=== PATIENT | male | born 1955 | race Two or more races ===

== ENCOUNTER 2021-06-22 16:48 | Inpatient (IN) | payer OTHER ==
[~2021-06-22] VITALS: Ht 170.2 cm; Wt 89.4 kg
[2021-06-22] MEDS ORDERED: IV NS 0.9% 1,000 ML BAG IV ONE ×2 (17:00→20:30)
--- NOTE | 2021-06-22 17:02 | NUR ---
ALONDRA Martinez PICKED UP FROM [facility] [employer] [facility], GIVEN NARCAN SPRAY BY FRIENDS. THE PATIENT IS RESPONSIVE TO TACTILE STIMULI BY OPENING EYES AND SAYING FEW WORDS. THE PATIENT IS IN ROOM AIR. RESPIRATION REGULAR AND UNLABORED. ATTACHED TO THE MONITOR. THE PATIENT WAS GIVEN TOTAL OF 18 MG OF NARCARN PER FOREIGN CAR MECHANIC`S REPORT. DR PALACIOS IS MADE AWARE. WILL CONTINUE TO MONITOR THE PATIENT.
--- NOTE | 2021-06-22 17:13 | NUR ---
URINE COLLECTED AND SENT TO LAB R KVNG #20G ON NS 1L
--- NOTE | 2021-06-22 17:52 | NUR ---
PT TAKEN TO CT VIA [facility]
[2021-06-22 18:22] LABS: BASOPHILS % (AUTO) 0.1 % (0.0-2.0); EOSINOPHILS % (AUTO) 0.1 % (0.0-6.0); HEMATOCRIT 47 % (39-51); HEMOGLOBIN 15.2 g/dL (13.5-17.5); LYMPHOCYTES # (AUTO) 0.7 K/uL (0.8-4.8); LYMPHOCYTES % (AUTO) 3.4 % (20.0-44.0); MEAN CORPUSCULAR HGB CONC 32 g/dl (31.0-36.0); MEAN CORPUSCULAR VOLUME 97 fL (80-96); MONOCYTES # (AUTO) 1.3 K/uL (0.1-1.30); MONOCYTES % (AUTO) 6.3 % (2.0-12.0); NEUTROPHILS # (AUTO) 18.5 K/uL (1.8-8.9); NEUTROPHILS % (AUTO) 90.1 % (43.0-81.0); PLATELET COUNT (AUTO) 225 K/uL (150-450); RED BLOOD CELL COUNT(AUTO) 4.83 MIL/uL (4.5-6.0); WHITE BLOOD COUNT (AUTO) 20.5 K/uL (4.3-11.0)
[2021-06-22 18:28] LABS: CALCIUM, SERUM 8.1 mg/dL (8.5-10.1); CARBON DIOXIDE 23 mmol/L (21-32); CHLORIDE 106 mmol/L (98-107); CREATININE 1.6 mg/dL (0.6-1.3); GLUCOSE 188 mg/dL (74-106); POTASSIUM 3.9 mmol/L (3.5-5.1); SODIUM SERUM 141 mmol/L (136-145); UREA NITROGEN, BLOOD 20 mg/dL (7-18)
[2021-06-22 18:32] LABS: ALANINE AMINOTRANSFERASE 280 U/L (12-78); ALBUMIN 3.4 g/dL (3.4-5.0); ALCOHOL, BLOOD < 3 mg/dL (0-0); ALKALINE PHOSPHATASE 106 U/L (46-116); ASPARTATE AMINOTRANSFERASE 469 U/L (15-37); BILIRUBIN,DIRECT 0.2 mg/dL (0.0-0.2); BILIRUBIN,TOTAL 0.6 mg/dL (0.2-1.0); TOTAL PROTEIN, SERUM 6.5 g/dL (6.4-8.2)
[2021-06-22 18:42] LABS: ACETAMINOPHEN 0 ug/ml (10-30)
[2021-06-22 18:57] LABS: BILIRUBIN,URINE NEGATIVE (NEGATIVE); COLOR,URINE YELLOW (YELLOW); LEUKOCYTE ESTERASE ,URINE NEGATIVE (NEGATIVE); NITRITE, URINE NEGATIVE (NEGATIVE); PH,URINE 6.5 (5.0-8.0); PROTEIN,URINE 30 mg/dl (NEGATIVE); UGLUCOSE NEGATIVE (NEGATIVE)
[2021-06-22] MEDS ORDERED: ASPIRIN 81 MG TAB.CHEW PO ONE (19:00)
[2021-06-22] MEDS ORDERED: CEFTRIAXONE 1GM BAG (ER ONLY) 50 ML IV ONE ×2 (19:00→20:14)
[2021-06-22 19:08] LABS: BACTERIA,URINE RARE /HPF (None Seen); COARSE GRANULAR CASTS,URINE Few /LPF (None Seen); MUCUS,URINE Few /LPF (None Seen); URINE AMORPHOUS URATE Few /HPF (None Seen)
[2021-06-22 19:38] LABS: SQUAMOUS EPITHELIAL CELL,UR 0-2 /HPF (None Seen)
[2021-06-22] MEDS ORDERED: ASPIRIN 81 MG TAB.CHEW ONE (20:14)
--- NOTE | 2021-06-22 20:26 | NUR ---
ER SPEAKING TO FEDERICO HE DNP REGARDING ADMISSION
--- NOTE | 2021-06-22 21:07 | NUR ---
Ellie lopez in [facility] - 06/22/21 at 2120 by CAMMY [id number]
--- NOTE | 2021-06-22 21:28 | NUR ---
REPORT GIVEN TO MICHAEL Rainey RN FOR CELIA
[2021-06-22 21:50] VITALS: BP 100/61
--- NOTE | 2021-06-22 21:50 | NUR ---
ADMISSION NOTES PT TRANSFERRED VIA [facility] @1950. PT IS AOx1, LETHARGIC. ON 2L/MIN VIA NASAL CANNULA AND TOLERATING WELL. NO SOB NOTED. NO S/SX OF RESPIRATORY DISTRESS NOTED. IV ACCESS IN R HAND #20G. IV IS INTACT, PATENT AND FLUSHING WELL. SAFETY PRECAUTIONS IN PLACE: BED IN LOWEST, LOCKED POSITION, SIDERAILS UPx2, AND BRAKES ON. TABLE AND CALL LIGHT WITHIN REACH. WILL CONTINUE TO MONITOR Addendum: 06/22/21 at 2356 by SUYAPA QUINTANA RN TELE MONITOR DETECTS SINUS TACHYCARDIA WITH RATE OF 102
--- NOTE | 2021-06-22 21:52 | NUR ---
PATIENT TRANSFERRED UNDER ACLS
--- NOTE | 2021-06-22 21:58 | NUR ---
TRANSFERRED PT TO 3W ROOM 307-2 VIA ACLS PROTOCOL ON 2L N/A. PT ARROUSABLE VSS.
[2021-06-22] MEDS ORDERED: Z GUARD REMEDY 2 OZ OINT TP PRN (22:30)
[2021-06-22] MEDS ORDERED: ONDANSETRON HCL/PF 4 MG/2 ML VIAL IVP PRN (22:30)
[2021-06-22] MEDS ORDERED: IV LR 1000 ML 1,000 ML IV PRN (22:30)
[2021-06-22] MEDS ORDERED: ACETAMINOPHEN 325 MG TABLET PO PRN (22:30)
[2021-06-22 22:31] VITALS: BP 100/61
[2021-06-23] VITALS (31 sets, daily range): BP systolic 83–149; BP diastolic 44–88
[2021-06-23] MEDS ORDERED: HEPARIN SODIUM, PORCINE 5000 UNITS/1 ML VIAL IV ONE (02:00)
[2021-06-23] MEDS ORDERED: HEPARIN INFUSION/D5W 500 ML IV ONE (02:07)
[2021-06-23] MEDS: HEPARIN INFUSION/D5W 500 ML IV PRN (02:35)
--- NOTE | 2021-06-23 02:48 | NUR ---
DR. HE CAME TO SEE THE PATIENT WHO HAD OXYGEN SATURATION OF 82%. PLACED PATIENT ON NONREBREATHER. GAVE HEPARIN BOLUS AND BEGAN HEPARIN IV DRIP. PATIENT IS GOING TO BE TRANSFERRED TO ER FOR FURTHER OBSERVATION. Addendum: 06/23/21 at 0305 by SUYAPA QUINTANA RN PT TRANSFERRED TO ICU - ROOM 258. REPORT GIVEN TO MONO CALVO.
[2021-06-23] MEDS ORDERED: PROPOFOL 100 ML ONE ×2 (02:49→03:12)
[2021-06-23] MEDS ORDERED: PROPOFOL 10MG/ML 50ML 50 ML IV PRN (03:00)
[2021-06-23] MEDS ORDERED: ROCURONIUM BROMIDE 50 MG/5 ML IV ONE ×2 (03:00→11:36)
[2021-06-23] MEDS ORDERED: ETOMIDATE 2 MG/ML VIAL IV ONE ×2 (03:00→11:36)
[2021-06-23] MEDS ORDERED: FUROSEMIDE 20 MG/2 ML VIAL IV STA (03:22)
--- NOTE | 2021-06-23 03:25 | NUR ---
RT pt intubated post abg results. abg: ph 7.16 co2 54 o2 336 hco3 19. intubated orally, ett size 8.0, 24 at upper lip. vent settings: AC 18 500 60% +5. ett secure and patent. vent plugged in to red outlet. ambu bag at bedside. alarms on and audible. lung sounds course. small, thick, yellow secretions suctioned via ett. no sob, no resp distress at this time.
[2021-06-23 04:35] LABS: BASOPHILS % (AUTO) 0.2 % (0.0-2.0); HEMATOCRIT 47 % (39-51); HEMOGLOBIN 15.4 g/dL (13.5-17.5); LYMPHOCYTES # (AUTO) 0.5 K/uL (0.8-4.8); LYMPHOCYTES % (AUTO) 4.2 % (20.0-44.0); MEAN CORPUSCULAR HGB CONC 33 g/dl (31.0-36.0); MEAN CORPUSCULAR VOLUME 96 fL (80-96); MONOCYTES # (AUTO) 0.6 K/uL (0.1-1.30); NEUTROPHILS # (AUTO) 10.2 K/uL (1.8-8.9); NEUTROPHILS % (AUTO) 90.6 % (43.0-81.0); PLATELET COUNT (AUTO) 238 K/uL (150-450); RED BLOOD CELL COUNT(AUTO) 4.85 MIL/uL (4.5-6.0); WHITE BLOOD COUNT (AUTO) 11.2 K/uL (4.3-11.0)
[2021-06-23 04:47] LABS: ALBUMIN 3.2 g/dL (3.4-5.0); BILIRUBIN,TOTAL 0.9 mg/dL (0.2-1.0); CALCIUM, SERUM 7.6 mg/dL (8.5-10.1); CREATININE 1.5 mg/dL (0.6-1.3); MAGNESIUM 2.1 mg/dL (1.8-2.4); PHOSPHORUS 4.9 mg/dL (2.5-4.9); POTASSIUM 5.2 mmol/L (3.5-5.1); TOTAL PROTEIN, SERUM 6.3 g/dL (6.4-8.2)
[2021-06-23 04:58] LABS: THYROID STIMULATING HORMONE 0.818 uIU/mL (0.358-3.74)
[2021-06-23 05:00] LABS: CSF GLUCOSE 69 mg/dL (40-70); CSF PROTEIN 32.2 mg/dL (15-45)
--- NOTE | 2021-06-23 05:30 | NUR ---
CRITICAL LAB VALUE, TROP. 1.234
--- NOTE | 2021-06-23 05:38 | NUR ---
RT increased rate from 18 to 22 and fio2 from 60% to 70% per eva negro dnp, post intubation abg result
--- NOTE | 2021-06-23 06:40 | NUR ---
RN CLOSING NOTE PATIENT IN BED RESTING, NO ACUTE DISTRESS NOTED. PATIENT HAS IVF RUNNING ORDERED. PT HAD 1450CC URINE OUTPUT. NO S/S OF PAIN NOTED. PATIENT IS TOLERATING VENT SETTING WELL. SAFETY MEASURES IN PLACE. HOB ELEVATED TOLERATED, SIDE RAILS UP X3, BED LOCKED IN LOWEST POSITION WITH BED ALARM ON. WILL ENDORSE TO DAY SHIFT RN FOR CONTINUATION OF CARE.
--- NOTE | 2021-06-23 07:25 | NUR ---
ICU/RN PT IS INTUBATED ON THE VENT AC MODE,FIO2-70%,SAT O2-100%.SEDATED ON DIPRIVAN.BILATERAL WRIST RESTRAINS ON.NPO.F/C IN PLACE DRAINING WITH YELLOW URINE.HR-106 SINUS .ON HEPARIN DRIP.SUCTION PROVIDED.REPOSITION FOR COMFORT.
[2021-06-23 07:26] LABS: ABG BASE EXCESS -10.1 mmol/L; ABG OXYGEN SATURATION 99.4 % (92.0-98.5); ABG PCO2 54.1 mmHg (35.0-45.0); ABG PH 7.163 (7.350-7.450); AaDO2 322.9 mmHg; MetHb 0.3 % (0.0-1.5); O2Hb 98.1 % (94.0-97.0); SITE, ABG Left Brachial; VENT MODE, BG 15 L NRB
[2021-06-23 07:26] LABS: ABG BASE EXCESS -6.8 mmol/L; ABG OXYGEN SATURATION 95.6 % (92.0-98.5); ABG PCO2 45.9 mmHg (35.0-45.0); ABG PH 7.262 (7.350-7.450); ABG PO2 76.3 mmHg (75.0-100.0); COHb 0.9 % (0.5-1.5); MetHb 0.2 % (0.0-1.5); O2Hb 94.5 % (94.0-97.0); SITE, ABG Right Radial; VENT MODE, BG AC 18 500 60% +5
--- NOTE | 2021-06-23 08:10 | NUR ---
ICU/RN PTT-86.5.HEPARIN DRIP PLACED ON HOLD ORDERED.
--- NOTE | 2021-06-23 08:21 | NUR ---
fio2 titrate down to 40% due to 150 PaO2. rn notified on vent changes spo2 99% post vent changed Addendum: 06/23/21 at 0823 by FRANKIE SHANNON RT Amended: Links added.
[2021-06-23] MEDS: ASPIRIN EC 81 MG TABLET.DR PO SCH (08:45)
[2021-06-23] MEDS ORDERED: ENOXAPARIN SODIUM 40 MG/0.4 ML DISP.SYRIN SQ SCH (09:00)
--- NOTE | 2021-06-23 09:20 | NUR ---
ICU/RN HEPARIN RESTARTED. RIGHT PICC LINE PLACED ORDERED. DR WILLIS SEEN THE PT .PT PLACED ON SIMV MODE.DIPRIVAN OFF.CONTINUE MONITORING.
--- NOTE | 2021-06-23 10:02 | NUR ---
vent changes below as order for weaning trial: simv 4 ps 15 fio2 40% peep +4 pt. is awake and alert and able to lift his head. Addendum: 06/23/21 at 1005 by FRANKIE SHANNON RT Amended: Links added.
[2021-06-23] MEDS: IV D5/ 0.9% NACL 1,000 ML IV PRN ×2 (10:52→22:06)
[2021-06-23] MEDS ORDERED: DC PROPOFOL WHEN EXTUBATED XX PRN (11:00)
--- NOTE | 2021-06-23 14:55 | NUR ---
pt. is awake and alert @ 1455 pt is extubated as order. RR 12 BPM spo2 98% HR 108 bpm no increase work of breathing noted. Addendum: 06/23/21 at 1502 by FRANKIE SHANNON RT Amended: Links added.
--- NOTE | 2021-06-23 15:00 | NUR ---
ICU/RN PT IS EXTUBATED.ON 2L N/C ,SAT O2-93-95%.V/S STABLE,AFEBRILE.AWAKE ,ALERT.SLEEPY.NO PAIN REPORTED AT THIS TIME.
--- NOTE | 2021-06-23 18:00 | NUR ---
ICU/RN PM CARE PROVIDED.PT IS SLEEPY.APTT-46. NO CHANGES.ON HEPARIN DRIP AT 1000 UNITS. NO S/S OF BLEEDING NOTED.AND IV FLUIDS. ORDERED.F/C-650 ML FOR 12 HRS. CONTINUE MONITORING.
--- NOTE | 2021-06-23 19:00 | NUR ---
DIAMOND EXPERT NOTE RECEIVED PATIENT IN BED SLEEPING NO VERBAL RESPONSIVE ON 2L OXYGEN VIA NASAL CANNULA O2:90-91 IV SITE IS ON LEFT HAND RIGHT HAND AND RIGHT UPPER ARM PICC LINE INTACT PATENT ON HEPARIN DRIP 1000 UNIT/HR AND D5NS 100CC/HR,WHATLEY CATHETER IN PLACE URINE DRAINING YELLOW AND CLEAR BY GRAVITY,SAFETY MEASURE IMPLEMENT,BED IN LOW POSITION AND LOCKED BED ALARM IS ON,HEAD OF THE BED ELEVATED CONTINUE TO MONITOR.
[2021-06-24] VITALS (16 sets, daily range): BP systolic 117–142; BP diastolic 74–91
[2021-06-24] MEDS: HEPARIN INFUSION/D5W 500 ML IV PRN (01:23)
[2021-06-24 04:55] LABS: BASOPHILS % (AUTO) 0.1 % (0.0-2.0); HEMATOCRIT 42 % (39-51); HEMOGLOBIN 14.1 g/dL (13.5-17.5); LYMPHOCYTES # (AUTO) 0.4 K/uL (0.8-4.8); MEAN CORPUSCULAR HGB CONC 34 g/dl (31.0-36.0); MEAN CORPUSCULAR VOLUME 95 fL (80-96); MONOCYTES # (AUTO) 0.8 K/uL (0.1-1.30); MONOCYTES % (AUTO) 7.4 % (2.0-12.0); NEUTROPHILS # (AUTO) 9.3 K/uL (1.8-8.9); NEUTROPHILS % (AUTO) 88.5 % (43.0-81.0); PLATELET COUNT (AUTO) 185 K/uL (150-450); WHITE BLOOD COUNT (AUTO) 10.5 K/uL (4.3-11.0)
[2021-06-24 05:03] LABS: ALBUMIN 2.8 g/dL (3.4-5.0); BILIRUBIN,TOTAL 1.1 mg/dL (0.2-1.0); CALCIUM, SERUM 7.7 mg/dL (8.5-10.1); PHOSPHORUS 2.3 mg/dL (2.5-4.9)
--- NOTE | 2021-06-24 06:24 | NUR ---
SUPERVISORY INVESTIGATIVE SPECIALIST NOTE RECEIVED PTT RESULT 72.7 PER PROTOCOL HEPARIN DECREASE 100 UNIT AND NEXT PTT IS 1230,PATIENT ON HEPARIN DRIP 900 UNIT PER HOUR CONTINUE TO MONITOR
--- NOTE | 2021-06-24 06:52 | NUR ---
WASHER BLANKET NOTE PATIENT IS SLEEPING AND VERBALLY RESPONSIVE ALERT ORIENTED X2-3 ON 2L OXYGEN VIA NASAL CANNULA O2:92% IV SITE IS ON LEFT AND RIGHT HAND AND RIGHT UPPER ARM PICC LINE INTACT PATENT,PATIENT IS ON HEPARIN DRIP 900 UNIT/HR AND ON IV HYDRATION D5NS 100CC/HR.WHATLEY CATHETER IN PLACE KEPT CLEAN AND DRY ALL THE TIME,KEPT CALL LIGHT WITHIN REACH HEAD OF THE BED ELEVATED ALL NEEDS MET ENDORSE NEXT COMING SHIFT FOR CONTINUATION OF CARE.
[2021-06-24] MEDS: IV D5/ 0.9% NACL 1,000 ML IV PRN ×2 (07:51→20:32)
[2021-06-24] MEDS ORDERED: K PHOS NEUTRAL 250 MG TABLET PO ONE (08:00)
--- NOTE | 2021-06-24 08:00 | NUR ---
RN NOTES RECEIVED PATIENT IN THE BED RESTING. PATIENT ON O22LNC. NO ACUTE RESPIRATORY DISTRESS, .VSS. PATIENT A/O X2/3 WITH DELIRIUM, TOLERATED BREAKFAST WELL. REFUSED PAIN. REPOSTION SELF IN THE BED. CALL LIGHT WITHIN TO REACG. SAFETY PRECAUTION MAINTAINED ALL TTHE TIME.
[2021-06-24] MEDS: ASPIRIN EC 81 MG TABLET.DR PO SCH (08:55)
[2021-06-24] MEDS: ENOXAPARIN SODIUM 40 MG/0.4 ML DISP.SYRIN SQ SCH (08:57)
--- NOTE | 2021-06-24 09:30 | NUR ---
rn notes get order to stop heparin infusion. due medication administered.
--- NOTE | 2021-06-24 10:17 | NUR ---
rn notes get order to transfer patient to the tele with meds.
--- NOTE | 2021-06-24 11:00 | NUR ---
RN NOTES PATIENT SIGN CONSENT FORM FOR CT OF ANGIO HEART W/3D IMAGES.
[2021-06-24 11:51] LABS: ABG BASE EXCESS -4.9 mmol/L; ABG PCO2 40.7 mmHg (35.0-45.0); ABG PH 7.325 (7.350-7.450); ABG PO2 106.3 mmHg (75.0-100.0); AaDO2 132.1 mmHg; COHb 0.8 % (0.5-1.5); MetHb 0.3 % (0.0-1.5); O2Hb 96.9 % (94.0-97.0); PEEP,BG 5 cm H2O; SITE, ABG Right Brachial; VT, ABG 500 mL
--- NOTE | 2021-06-24 12:45 | NUR ---
rn notes transferred patient to the tele unit room 313 bed 2, patient stable, no acute respiratory distress, o2-2lnc , vss. bedside report given CTY RN follow up plan of care.
--- NOTE | 2021-06-24 13:15 | NUR ---
RECEIVED PT. VIA BED.MADE COMFORTABLE. VS TAKEN.IV INFUSING F/CATH TO GRAVITY DRAINAGE. HOOKED UP TO TELE. PT'S RHYTHM SINUS RATE OF 93.SIDE RAILS UP CALL PEARSON WITHIN REACH.
--- NOTE | 2021-06-24 18:00 | NUR ---
NO CHANGE IN STATUS.
--- NOTE | 2021-06-24 19:30 | NUR ---
WIND PLANT MANAGER OPENING NOTE RECEIVED PATIENT IN BED. SLEEPING. ON OXYGEN 3L/MIN VIA NASAL CANNULA. RESPIRATIONS ARE EVEN AND UNLABORED. NO S/S SOB NOTED. NO S/S PAIN NOTED. IN NO APPARENT DISTRESS. TELE MONITOR RED SINUS RHYTHM HR 90. IV ACCESS IN LEFT HAND, RIGHT HAND AND KERVIN PICC LINE RUNNING D5NS@100ML/HR. WHATLEY CATHETER IS PRESENT, DRAINING TO GRAVITY, URINE IS HEMATURIA. BED IS LOW AND LOCKED, HOB IN HIGH FOWLERS, SIDE RIALS UP X2, CALL LIGHT WITHIN REACH.
[2021-06-25] VITALS: BP 134/71
[2021-06-25 04:00] VITALS: BP 129/77
--- NOTE | 2021-06-25 05:27 | NUR ---
RN NOTE PATIENT TEMP 100.5 ORALLY. NO PRN TYLENOL. LFTS ELEVATED. TURNED ON ROOM AC. REMOVED ALL LINEN. PLACED ICE PACKS ON PATIENT.
[2021-06-25] MEDS: IV D5/ 0.9% NACL 1,000 ML IV PRN ×2 (05:42→18:02)
--- NOTE | 2021-06-25 06:48 | NUR ---
RN NOTE PATIENT RESTING IN BED. A/OX2-3. PATIENT NEURO CHECK Q4HR. REMAINS ON OXYGEN 3L/MIN VIA NASAL CANNULA.NO RESP DISTRESS. NO C/O PAIN. PAINS TEMP IS NOW 98.5. TELE READS SINUS RHYTHM. IV IN KERVIN PICC LINE RUNNING D5NS@100ML/HR. WHATLEY CATHETER OUTPUT 600CC HEMATURIA. BED REMAINS LOW AND LOCKED, HOB IN HIGH FOWLERS, SIDE RIALS UP X2, CALL LIGHT WITHIN REACH. WILL ENDORSE TO ONCOMING SHIFT.
[2021-06-25 06:52] LABS: BASOPHILS % (AUTO) 0.3 % (0.0-2.0); EOSINOPHILS % (AUTO) 0.4 % (0.0-6.0); HEMATOCRIT 38 % (39-51); HEMOGLOBIN 13.1 g/dL (13.5-17.5); LYMPHOCYTES # (AUTO) 0.7 K/uL (0.8-4.8); LYMPHOCYTES % (AUTO) 7.4 % (20.0-44.0); MEAN CORPUSCULAR HGB CONC 34 g/dl (31.0-36.0); MEAN CORPUSCULAR VOLUME 94 fL (80-96); MONOCYTES # (AUTO) 0.7 K/uL (0.1-1.30); MONOCYTES % (AUTO) 7.4 % (2.0-12.0); NEUTROPHILS # (AUTO) 7.5 K/uL (1.8-8.9); NEUTROPHILS % (AUTO) 84.5 % (43.0-81.0); PLATELET COUNT (AUTO) 180 K/uL (150-450); RED BLOOD CELL COUNT(AUTO) 4.07 MIL/uL (4.5-6.0); WHITE BLOOD COUNT (AUTO) 8.9 K/uL (4.3-11.0)
[2021-06-25 07:13] LABS: ALBUMIN 2.3 g/dL (3.4-5.0); BILIRUBIN,TOTAL 1.3 mg/dL (0.2-1.0); CALCIUM, SERUM 8.2 mg/dL (8.5-10.1); CREATININE 0.8 mg/dL (0.6-1.3); MAGNESIUM 2.2 mg/dL (1.8-2.4); TOTAL PROTEIN, SERUM 5.6 g/dL (6.4-8.2)
--- NOTE | 2021-06-25 07:26 | NUR ---
PLANETARIUM TECHNICIAN OPENING NOTES RECEIVED PATIENT AWAKE IN BED IN NO ACUTE SIGNS OF DISTRESS. A/O X2-3. ABLE TO MAKE NEEDS KNOWN, DENIES PAIN OR DISCOMFORTS AT THIS TIME. ON O2 3L/MIN VIA N/C, TOLERATING WELL, RESPIRATIONS ARE EVEN AND UNLABORED. ON TELE MONITOR WITH READING OF NSR WITH PVC'S, HR ON THE 90'S AT THIS TIME, NO C/O CARDIAC DISTRESS VOICED. IV SL ON LEFT HAND G#20, RIGHT HAND G#20 AND KERVIN PICC LINE ALL INTACT AND PATENT, IVF OF D5 NS@100ML/HR INFUSING WELL TO KERVIN PICC LINE. WHATLEY CATHETER IN PLACE WITH CLEAR PINKISH YELLOWISH URINE DRAINING TO GRAVITY. SAFETY MEASURES IN PLACE: BED IN LOWEST LOCKED POSITION, BED ALARM ON, SIDE RAILS UP X2 ANS CALL LIGHT WITHIN REACH. WILL CONTINUE TO MONITOR PT ACCORDINGLY.
[2021-06-25 08:00] VITALS: BP 145/84
[2021-06-25] MEDS: ASPIRIN EC 81 MG TABLET.DR PO SCH (08:24)
[2021-06-25] MEDS: ENOXAPARIN SODIUM 40 MG/0.4 ML DISP.SYRIN SQ SCH (08:25)
[2021-06-25 09:08] LABS: POTASSIUM 3.7 mmol/L (3.5-5.1)
[2021-06-25] MEDS ORDERED: IOHEXOL-350 100 ML VIAL IV ONE (09:55)
[2021-06-25] MEDS ORDERED: METOPROLOL TARTRATE INJ 5 MG/5 ML AMPUL ONE (10:09)
[2021-06-25] MEDS: METOPROLOL TARTRATE INJ 5 MG/5 ML AMPUL IVP PRN ×4 (10:12→10:27)
--- NOTE | 2021-06-25 10:17 | NUR ---
RN NOTES PT PICKED-UP FOR [facility] .
[2021-06-25] MEDS ORDERED: IV NS 0.9% 500 ML IV ONE (10:30)
[2021-06-25] MEDS ORDERED: NITROGLYCERIN 0.4 MG/TAB BOTTLE SL ONE (10:30)
[2021-06-25 11:07] LABS: *CRYPTOCOCCUS AG, CSF Negative (Negative)
--- NOTE | 2021-06-25 12:38 | NUR ---
"SS consult : SS consult requested for homelessness and substance abuse. Pt. is a 47-year-old male [place] per EMR. Per the EMR, pt. was given Narcan by his friends which did not arouse him much. Pt. presents to the ER with acute renal failure and lactic acidosis per EMR. Per the EMR, pt. tested positive for cannabinoids and methamphetamine. Upon SS consult, pt. was A&O x3 and appears unkempt. Pt. presented with a depressed mood and affect and slow speech. Pt. did not provide appropriate eye contact and his eyes were closed throughout the interview. Pt. stated that he is currently in the hospital because he had a heart attack. SW explored substance abuse HX. Per the pt., he hasnt used alcohol or drugs in a year. SW offered MAT resources and pt. refused them. SW explored the social support of the pt. Per the pt., the primary tooth cutter contact wheel is his ex- Ester ([phone], [address] [facility]). SW explored pt.s living situation. Pt. stated they are currently experiencing homelessness and stays with friends. Pt. stated that they have been homeless for six months. SW offered homeless resources and pt. accepted them. SW explored psychiatric HX. Per the pt., he does not have a psychiatric diagnosis. Pt. denied visual/auditory hallucinations and denied SI/HI. SW explored financial benefits. Pt. stated they receive general relief. Pt. states he is ambulatory. Plan: Upon discharge, pt. stated they will return to stay with friends but did not provide name/address. SW will remain available as needed. Pt. signed homeless waiver and it was placed in the pt.s chart. Year-round shelters: [facility] [place] [address] [place] [address] ; [facility] [place] [address] [place] [address]; [facility] [place] [facility] [address] [facility] [address] Winter Shelters: [place] Provider: [facility] [place] Address: [facility] Janice [place], [address] # of Beds: 47 Population Served: [facility] | [place] Provider: [facility] Address: [address] [place] [address], [address] # of Beds: 66 Population Served: [facility] Reinaldo [place] Provider: [facility] Address: [address] [facility] [facility], [address] # of Beds: 56 Population Served: [facility] Zane Temple Provider: [facility] Address: [address] [facility], [address] # of Beds: 49 Population Served: [facility] 8 | [place] Provider: [facility] Address: [address] [facility], [address] # of Beds: 37 Population Served: [facility] Hygiene: [place] [facility]: [address] [facility] [place] [facility] ; [place] [facility] [address] [facility] ; [facility] [address] [facility] . Food Resources: [place] [facility] at [facility]- [address] [facility]; Meet Each Need with Dignity ([facility]) [address] [facility]; [facility] [address] [facility]; [facility] [address] [facility]. Mental Health resources provided: [facility] [address] [place] [address] ; [facility] [address] [facility] [address], [place] [address] ; Fawn [facility] [address] [place] [address] ; [place] [facility] [address] [place], [place] [phone] Healthcare Clinics: [facility] [address] [facility], [address] [place]. [place] ; [facility] [address] [facility] [address] [place] [address]; [facility] [address] [facility] [place] [address] [phone] Counseling--Outpatient [facility] [address] [facility], [place] [address] (Specializes in in-depth psychotherapy for emotional distress: anxiety, depression, interpersonal conflicts, life transitions, childhood abuse) [facility] [address] [place] [address] (Assist with solving problem marital difficulties, separation & divorce, aging parents, & grief, chronic & terminal illness) [facility] [address] [place] [address] (Deal with loss & grief, anxiety, marital difficulties) Homebound/Mental Health Services [address] [address] [facility] [address] [place] [address] (Provide in-home mental services to people who are incapable of leaving their homes) [facility]eds of the Elderly Senior Service/Resource Center [address] [place] [address] [facility] [address] [facility] [place] [address] PSYCHIATRIC OUTPATIENT SERVICES [facility] Partial Hospitalization and Intensive Outpatient Program (Managed Care and [place] Only)[address] [facility]. [facility] [phone] [facility] Partial Hospitalization and Outpatient [id number] [facility]. [address] [place], [place] [phone] [facility] [place] Ogz[address] [facility] [address] [place], [place] [phone] [facility] Partial Hospitalization and Outpatient [id number] [place], [phone] Substance Abuse resources provided included: [facility] Substance Abuse Self-Helpline (SAS) ; [facility] [address] [facility]. [place]. [place] [address] ; [facility] [place] [address] [facility] [address] ; [facility] Rehabilitation [facility] [address] [place] [address] ; [facility] [address] [facility] [address] ; [facility] [address] [facility] [phone] ; [facility] [address] [facility] [phone] ; [facility] Substance Abuse Helpline([facility] ; [facility] ; [facility]; [facility]a [facility]; [facility] [place]; [facility] Travis [place]; [place] [facility]; [facility]; [facility]; [facility] [place]; Alcoholics Anonymous -SFV; Sy-Uitk-Zbqmqko ; Marijuana Anonymous -SFV; Narcotics Anonymous www.na.org;"
--- NOTE | 2021-06-25 14:42 | NUR ---
RN NOTES PT TITRATED DOWN O2 VIA N/C AT 3LPM TO 2LPM, TOLERATING WELL WITH SP02 OF 94-95% NOTED. WILL CONTINUE TO MONITOR PT.
[2021-06-25] MEDS ORDERED: K PHOS NEUTRAL 250 MG TABLET PO ONE ×2 (15:30→18:00)
[2021-06-25 16:00] VITALS: BP 133/79
[2021-06-25] MEDS: PIPERACILLIN /TAZOBACTAM 3.375 G in IV D5W 50 ML IV SCH (17:53)
--- NOTE | 2021-06-25 18:36 | NUR ---
MS RN CLOSING NOTES PATIENT ASLEEP IN BED AT THIS TIME, EASILY AWAKENS. A/O X3. ABLE TO MAKE NEEDS KNOWN. ON O2 2L/MIN VIA N/C, TOLERATING WELL, RESPIRATIONS ARE EVEN AND UNLABORED. IV SL ON LEFT HAND G#20, RIGHT HAND G#20 AND KERVIN PICC LINE ALL INTACT AND PATENT, IVF OF D5 NS@100ML/HR INFUSING WELL TO KERVIN PICC LINE. WHATLEY CATHETER IN PLACE WITH TEA COLORED URINE OUTPUT NOTED NOW, WHATLEY CARE DONE. ALL NEEDS AND CARE PROVIDED WELL. SAFETY MEASURES KEPT IN PLACE: BED IN LOWEST LOCKED POSITION, BED ALARM ON, SIDE RAILS UP X2 ANS CALL LIGHT WITHIN REACH. STILL NEED TO COLLECT SPUTUM FOR CULTURE. WILL ENDORSE CELIA AND PLAN OF CARE TO CONSTRUCTION RIGGER NURSE.
--- NOTE | 2021-06-25 19:30 | NUR ---
MS/RN OPENING NOTE RECEIVED PATIENT SLEEPING IN BED. ALERT AND ORIENTED X 3. ABLE TO MAKE NEEDS KNOWN. DENIES PAIN AT THIS TIME. CONTINUES ON 2L O2 VIA NC WITH NO S/SX OF RESPIRATORY DISTRESS NOTED. IV ACCESS TO RIGHT UPPER ARM PICC LINE INTACT AND PATENT. CONTINUES ON IVF D5NS @ 100ML/HR. IV ACCESS TO LEFT HAND #20G AND RIGHT HAND #20G BOTH INTACT, PATENT AND SALINE LOCKED. CONTINUES ON IV ABX. WHATLEY CATHETER IN PLACE DRAINING EV COLORED URINE TO GRAVITY. CALL LIGHT WITHIN REACH. ASPIRATION, FALL AND SAFETY PRECAUTIONS MAINTAINED. WILL CONTINUE TO MONITOR.
[2021-06-25 20:00] VITALS: BP 114/60
--- NOTE | 2021-06-25 20:15 | NUR ---
MS/RN NOTE PATIENT WITH FEVER OF 100.6. COOLING MEASURES INITIATED. NOTIFIED TUFTING MACHINE FIXER MD TREJO TO OBTAIN TYLENOL PRN ORDER. AWAITING CALL BACK.
--- NOTE | 2021-06-25 20:30 | NUR ---
MS/RN NOTE ADMINISTERED PRN TYLENOL FOR FEVER WITH PENDING EFFECT. WILL RECHECK TEMP.
[2021-06-25] MEDS: ACETAMINOPHEN 325 MG TABLET PO PRN (20:36)
--- NOTE | 2021-06-25 21:30 | NUR ---
MS/RN NOTE TEMP DOWN TO 99.1. PATIENT CURRENTLY SLEEPING IN BED. WILL CONTINUE TO MONITOR.
[2021-06-26] MEDS: PIPERACILLIN /TAZOBACTAM 3.375 G in IV D5W 50 ML IV SCH ×5 (00:32→23:50)
[2021-06-26] MEDS: IV D5/ 0.9% NACL 1,000 ML IV PRN (04:45)
[2021-06-26] MEDS: ACETAMINOPHEN 325 MG TABLET PO PRN (06:10)
[2021-06-26 06:18] LABS: BASOPHILS % (AUTO) 0.2 % (0.0-2.0); EOSINOPHILS % (AUTO) 0.6 % (0.0-6.0); HEMATOCRIT 37 % (39-51); HEMOGLOBIN 12.8 g/dL (13.5-17.5); LYMPHOCYTES # (AUTO) 0.7 K/uL (0.8-4.8); LYMPHOCYTES % (AUTO) 7.6 % (20.0-44.0); MEAN CORPUSCULAR HGB CONC 34 g/dl (31.0-36.0); MEAN CORPUSCULAR VOLUME 93 fL (80-96); MONOCYTES # (AUTO) 0.8 K/uL (0.1-1.30); MONOCYTES % (AUTO) 8.3 % (2.0-12.0); NEUTROPHILS # (AUTO) 7.9 K/uL (1.8-8.9); NEUTROPHILS % (AUTO) 83.3 % (43.0-81.0); PLATELET COUNT (AUTO) 196 K/uL (150-450); RED BLOOD CELL COUNT(AUTO) 3.99 MIL/uL (4.5-6.0); WHITE BLOOD COUNT (AUTO) 9.4 K/uL (4.3-11.0)
--- NOTE | 2021-06-26 06:30 | NUR ---
MS/RN CLOSING NOTE PATIENT CURRENTLY SLEEPING IN BED. ALERT AND ORIENTED X 3. ABLE TO MAKE NEEDS KNOWN. DENIES PAIN AT THIS TIME. CONTINUES ON 1L O2 VIA NC WITH NO S/SX OF RESPIRATORY DISTRESS NOTED. IV ACCESS TO RIGHT UPPER ARM PICC LINE INTACT AND PATENT. CONTINUES ON IVF D5NS @ 100ML/HR. IV ACCESS TO LEFT HAND #20G INTACT, PATENT AND SALINE LOCKED. CONTINUES ON IV ABX. WHATLEY CATHETER IN PLACE DRAINING EV COLORED URINE TO GRAVITY. TOTAL OUTPUT WS 650ML THIS SHIFT. CALL LIGHT WITHIN REACH. ASPIRATION, FALL AND SAFETY PRECAUTIONS MAINTAINED. WILL ENDORSE PLAN OF CARE TO ONCOMING SHIFT.
[2021-06-26 06:57] LABS: CALCIUM, SERUM 7.7 mg/dL (8.5-10.1); CREATININE 0.9 mg/dL (0.6-1.3); MAGNESIUM 1.8 mg/dL (1.8-2.4); PHOSPHORUS 1.2 mg/dL (2.5-4.9); POTASSIUM 3.6 mmol/L (3.5-5.1)
--- NOTE | 2021-06-26 07:20 | NUR ---
MS RN OPENING NOTES RECEIVED PATIENT ASLEEP IN BED, EASILY AROUSABLE. PT IS A/O X3. ABLE TO MAKE NEEDS KNOWN, DENIES PAIN OR DISCOMFORTS AT THIS TIME. ON O2 VIA N/C @ 1LPM, TOLERATING WELL, BREATHING EVEN AND UNLABORED. IVF OF D5 NS@100ML/HR INFUSING WELL TO KERVIN PICC LINE. WHATLEY CATHETER IN PLACE WITH CLEAR YELLOWISH URINE DRAINING TO GRAVITY. SAFETY MEASURES IN PLACE: BED IN LOWEST LOCKED POSITION, BED ALARM ON, SIDE RAILS UP X2 ANS CALL LIGHT WITHIN REACH. WILL CONTINUE TO MONITOR PT ACCORDINGLY.
[2021-06-26 08:00] VITALS: BP 98/61
[2021-06-26] MEDS ORDERED: FUROSEMIDE 20 MG/2 ML VIAL IV ONE (08:30)
[2021-06-26] MEDS: ASPIRIN EC 81 MG TABLET.DR PO SCH (08:56)
[2021-06-26] MEDS: NEUTRA PHOS 1 POWD.PACKET PO SCH ×2 (08:57→16:27)
[2021-06-26] MEDS: ENOXAPARIN SODIUM 40 MG/0.4 ML DISP.SYRIN SQ SCH (08:58)
--- NOTE | 2021-06-26 12:20 | NUR ---
MONO NOTES BLADDER SCAN DONE WITH 190ML URINE RESIDUALS NOTED. VIPUL FRANCISCO MADE AWARE WITH ORDER TO DO BLADDER SCAN Q SHIFT AND DO STRAIGHT CATH IF RESIDUALS IS >200ML. WILL ENDORSE. Addendum: 06/26/21 at 1443 by CHAD RAGLAND RN CORRECTION: WRONG PATIENT
[2021-06-26 16:00] VITALS: BP 136/81
--- NOTE | 2021-06-26 18:41 | NUR ---
MS RN CLOSING NOTES PATIENT IN BED AWAKE AND RESTING AT SEMI-NATARAJAN'S POSITION AT THIS TIME. A/O X3. ABLE TO MAKE NEEDS KNOWN. ON O2 1L/MIN VIA N/C, TOLERATING WELL, RESPIRATIONS ARE EVEN AND UNLABORED. IV SL ON LEFT HAND G#20, AND KERVIN PICC LINE BOTH INTACT, PATENT AND FLUSHES WELL. WHATLEY CATHETER IN PLACE WITH CLEAR YELLOW COLORED URINE OUTPUT NOTED, WHATLEY CARE DONE. ALL NEEDS AND CARE PROVIDED WELL. SAFETY MEASURES KEPT IN PLACE: BED IN LOWEST LOCKED POSITION, BED ALARM ON, SIDE RAILS UP X2 AND CALL LIGHT WITHIN REACH. WILL ENDORSE CONTINUITY OF CARE TO MANAGER SOFTWARE NURSE.
--- NOTE | 2021-06-26 19:15 | NUR ---
MS RN OPENING NOTES PT AWAKE, ALERT, ABLE TO VERBALIZE NEEDS. HE DENIES ANY PAIN/DISCOMFORT AT THIS TIME. RESPIRATIONS EVEN AND UNLABORED. IV ACCESS: KERVIN PICC LINE INTACT/PATENT, WITH DRESSING C/D/I. PT IN NO ACUTE DISTRESS. SAFETY MEASURES IN PLACE, BED IN LOWEST LOCKED POSITION, S/R UPX2, CALL LIGHT WITHIN REACH. WILL CONT TO MONITOR.
[2021-06-26 20:00] VITALS: BP 128/64
--- NOTE | 2021-06-27 03:00 | NUR ---
RN NOTE HANDOFF TO RNALICJA, FOR CONTINUITY OF CARE.
[2021-06-27] MEDS: PIPERACILLIN /TAZOBACTAM 3.375 G in IV D5W 50 ML IV SCH ×3 (05:27→18:40)
--- NOTE | 2021-06-27 06:00 | NUR ---
MS RN NOTES AWAKE & RESPONSIVE. NOT IN ANY DISTRESS. NO SOB NOTED. DENIES ANY PAIN OR DISCOMFORT AT THIS TIME. WITH IVF INFUSING WELL. AM CARE DONE. MONITORED ACCORDINGLY. CALL LIGHT WITHIN REACH. BED IN LOWEST POSITION. SR UP X 3 WITH BED ALARM ON FOR SAFETY. WILL ENDORSE TO NEXT SHIFT.
[2021-06-27 07:02] LABS: BASOPHILS % (AUTO) 0.4 % (0.0-2.0); EOSINOPHILS % (AUTO) 1.6 % (0.0-6.0); HEMATOCRIT 41 % (39-51); HEMOGLOBIN 14.1 g/dL (13.5-17.5); LYMPHOCYTES # (AUTO) 0.9 K/uL (0.8-4.8); LYMPHOCYTES % (AUTO) 8.5 % (20.0-44.0); MEAN CORPUSCULAR HGB CONC 34 g/dl (31.0-36.0); MEAN CORPUSCULAR VOLUME 93 fL (80-96); MONOCYTES # (AUTO) 1.2 K/uL (0.1-1.30); MONOCYTES % (AUTO) 11.4 % (2.0-12.0); NEUTROPHILS # (AUTO) 8.2 K/uL (1.8-8.9); NEUTROPHILS % (AUTO) 78.1 % (43.0-81.0); PLATELET COUNT (AUTO) 250 K/uL (150-450); RED BLOOD CELL COUNT(AUTO) 4.46 MIL/uL (4.5-6.0); WHITE BLOOD COUNT (AUTO) 10.5 K/uL (4.3-11.0)
[2021-06-27 07:30] LABS: CALCIUM, SERUM 8.1 mg/dL (8.5-10.1); MAGNESIUM 1.7 mg/dL (1.8-2.4); PHOSPHORUS 2.5 mg/dL (2.5-4.9); POTASSIUM 3.3 mmol/L (3.5-5.1)
[2021-06-27 08:00] VITALS: BP 132/82
--- NOTE | 2021-06-27 08:00 | NUR ---
MS/RN OPENING NOTES RECEIVED PATIENT IN BED, AWAKE, ALERT, ABLE TO VERBALIZED NEEDS. RESPIRATIONS EVEN AND UNLABORED. IV ACCESS: KERVIN PICC LINE INTACT/PATENT ON SALINE LOCKED. SAFETY MEASURES IN PLACE, BED IN LOWEST LOCKED POSITION, SIDE RAILS UPX2, CALL LIGHT WITHIN REACH. WILL CONTINUE TO MONITOR PATIENT.
[2021-06-27] MEDS: Magnesium 1GM/D5W 100ML PREMIX 100 ML IV SCH ×2 (09:11→10:43)
[2021-06-27] MEDS: ASPIRIN EC 81 MG TABLET.DR PO SCH (09:12)
[2021-06-27] MEDS: POTASSIUM CHLORIDE 20 MEQ TAB.PRT.SR PO SCH ×2 (09:12→10:43)
[2021-06-27] MEDS: ENOXAPARIN SODIUM 40 MG/0.4 ML DISP.SYRIN SQ SCH (09:13)
[2021-06-27 16:00] VITALS: BP 120/71
[2021-06-27 20:00] VITALS: BP 129/83
[2021-06-28] MEDS: PIPERACILLIN /TAZOBACTAM 3.375 G in IV D5W 50 ML IV SCH ×4 (00:50→17:26)
--- NOTE | 2021-06-28 06:29 | NUR ---
RN NOTES PATIENT IN BED, AWAKE, ALERT, ABLE TO VERBALIZED NEEDS. RESPIRATIONS EVEN AND UNLABORED. ON 2L TOLERATING WELL. IV ACCESS: KERVIN PICC LINE INTACT/PATENT ON SALINE LOCKED. SAFETY MEASURES IN PLACE, BED IN LOWEST LOCKED POSITION, SIDE RAILS UPX2, CALL LIGHT WITHIN REACH. WHATLEY CATH WIT 800CC OUTPUT.WILL ENDORSE CARE TO DAY SHIFT NURSE.
--- NOTE | 2021-06-28 07:30 | NUR ---
MS RN OPENING NOTE RECEIVED PATIENT ON BED AND A/OX4. ON O2 AT 2LPM VIA NASAL CANNULA TOLERATING WELL. NO SOB NOTED. NOT IN DISTRESS. WITH NO COMPLAINTS OF PAIN OR DISCOMFORT AT THIS TIME. WITH IV ACCESS AT RIGHT UPPER ARM PICC LINE, SALINE LOCKED, PATENT AND INTACT. SAFETY MEASURES IN PLACE. CALL LIGHT WITHIN REACH. BED ON LOWEST AND LOCKED POSITION, SIDE RAILS UP X2. WILL CONTINUE TO MONITOR.
[2021-06-28 07:36] LABS: BASOPHILS % (AUTO) 0.2 % (0.0-2.0); EOSINOPHILS % (AUTO) 4.6 % (0.0-6.0); HEMATOCRIT 44 % (39-51); HEMOGLOBIN 15.1 g/dL (13.5-17.5); LYMPHOCYTES % (AUTO) 11.3 % (20.0-44.0); MEAN CORPUSCULAR HGB CONC 34 g/dl (31.0-36.0); MEAN CORPUSCULAR VOLUME 93 fL (80-96); MONOCYTES # (AUTO) 0.9 K/uL (0.1-1.30); MONOCYTES % (AUTO) 10.3 % (2.0-12.0); NEUTROPHILS # (AUTO) 6.6 K/uL (1.8-8.9); NEUTROPHILS % (AUTO) 73.6 % (43.0-81.0); PLATELET COUNT (AUTO) 277 K/uL (150-450); RED BLOOD CELL COUNT(AUTO) 4.79 MIL/uL (4.5-6.0)
[2021-06-28 07:56] LABS: CALCIUM, SERUM 8.1 mg/dL (8.5-10.1); CREATININE 0.9 mg/dL (0.6-1.3); MAGNESIUM 2.3 mg/dL (1.8-2.4); PHOSPHORUS 2.5 mg/dL (2.5-4.9); POTASSIUM 3.9 mmol/L (3.5-5.1); TOTAL PROTEIN, SERUM 6.1 g/dL (6.4-8.2)
[2021-06-28 08:00] VITALS: BP 126/79
[2021-06-28] MEDS: ASPIRIN EC 81 MG TABLET.DR PO SCH (09:00)
[2021-06-28] MEDS: ENOXAPARIN SODIUM 40 MG/0.4 ML DISP.SYRIN SQ SCH (09:02)
[2021-06-28 16:00] VITALS: BP 118/74
--- NOTE | 2021-06-28 19:00 | NUR ---
MS RN CLOSING NOTE PATIENT ON BED AND A/OX4. ON O2 AT 2LPM VIA NASAL CANNULA TOLERATING WELL. NO SOB NOTED. NOT IN DISTRESS. WITH NO COMPLAINTS OF PAIN OR DISCOMFORT AT THIS TIME. WITH IV ACCESS AT RIGHT UPPER ARM PICC LINE, SALINE LOCKED, PATENT AND INTACT. SAFETY MEASURES IN PLACE. CALL LIGHT WITHIN REACH. BED ON LOWEST AND LOCKED POSITION, SIDE RAILS UP X2. WILL ENDORSE TO NEXT SHIFT FOR CELIA.
--- NOTE | 2021-06-28 19:36 | NUR ---
MS RN OPENING NOTES PATIENT IN BED AND A/OX4. ON O2 AT 2LPM VIA NASAL CANNULA TOLERATING WELL. NO SOB NOTED. NOT IN DISTRESS. WITH NO COMPLAINTS OF PAIN OR DISCOMFORT AT THIS TIME. WITH IV ACCESS AT RIGHT UPPER ARM PICC LINE, SALINE LOCKED, PATENT AND INTACT. SAFETY MEASURES IN PLACE. CALL LIGHT WITHIN REACH. BED ON LOWEST AND LOCKED POSITION, SIDE RAILS UP X2. WILL CONTINUE TO MONITOR.
[2021-06-28 20:00] VITALS: BP 126/76
[2021-06-29] MEDS: PIPERACILLIN /TAZOBACTAM 3.375 G in IV D5W 50 ML IV SCH ×3 (00:17→11:01)
--- NOTE | 2021-06-29 06:35 | NUR ---
RN NOTES PATIENT IN BED AND A/OX4. ON O2 AT 2LPM VIA NASAL CANNULA TOLERATING WELL. NO SOB NOTED. NOT IN DISTRESS. WITH NO COMPLAINTS OF PAIN OR DISCOMFORT AT THIS TIME. WITH IV ACCESS AT RIGHT UPPER ARM PICC LINE, SALINE LOCKED, PATENT AND INTACT. SAFETY MEASURES IN PLACE. CALL LIGHT WITHIN REACH. BED ON LOWEST AND LOCKED POSITION, SIDE RAILS ALL DUE MEDS GIVEN AND TOLERATED WELL. WILL ENDORSE CARE O DAY SHIFT NURSE
--- NOTE | 2021-06-29 07:15 | NUR ---
MS RN OPENING NOTES RECEIVED PATIENT IN BED AND A/OX4. PATIENT IS BREATHING EVENLY AND NONLABORED ON O2 AT 2LPM VIA NASAL CANNULA TOLERATING WELL. NO SOB NOTED. NOT IN DISTRESS. WITH NO COMPLAINTS OF PAIN OR DISCOMFORT AT THIS TIME. PATIENT NOTED WITH IV ACCESS AT RIGHT UPPER ARM PICC LINE, SALINE LOCKED, PATENT AND INTACT. SAFETY MEASURES IN PLACE. CALL LIGHT WITHIN REACH. BED ON LOWEST AND LOCKED POSITION, SIDE RAILS UP X2. WILL CONTINUE TO MONITOR.
[2021-06-29] MEDS: ASPIRIN EC 81 MG TABLET.DR PO SCH (08:17)
[2021-06-29] MEDS: ENOXAPARIN SODIUM 40 MG/0.4 ML DISP.SYRIN SQ SCH (08:19)
[2021-06-29 09:10] VITALS: BP 120/74
--- NOTE | 2021-06-29 14:08 | NUR ---
[employer] DEVELOPER NOTE RECEIVED ORDER FOR DISCHARGE. PATIENT IS A/OX4. PATIENT IS BREATHING EVENLY AND NONLABORED ON ROOM AIR. PATIENT WAS TITRATED OFF O2 SATURATION @ 100%. NO SIGNS OF DISTRESS NOTED. PATIENT DENIES PAIN OR DISCOMFORT AT THIS TIME. WHATLEY CATHETER WAS REMOVED AND PATIENT VOIDED. PATIENT WAS ABLE TO AMBULATE SAFELY TO THE BATHROOM. PATIENT WAS GIVEN DISCHARGE INSTRUCTIONS AND SNF INFORMATION BOTH GIVEN WRITTEN AND IN VERBAL FORM. PATIENT VERBALIZED UNDERSTANDING. PATIENT WAS GIVEN CLOTHES. BELONGINGS ACCOUNTED FOR AND BELONGINGS FORM SIGNED, IV ACCESS REMOVED CATHETER TIPS INTACT, PRESSURE DRESSING APPLIED, NO BLEEDING NOTED. PATIENT LEFT IN STABLE CONDITION VIA AMBULATION.
== END 2021-06-29 14:10 | disposition home or self-care (01) | DRG 812 ==
LOC: ER 16:54 → EDBD 21:08 → TELE 21:08 → ICU 06-23 02:57 → TELE 06-24 13:18 → MED 06-25 08:59
PROVIDERS: ADMIT Nurse Practitioner Acute Care
PROC: 5A1935Z Respiratory Ventilation, Less than 24 Consecutive Hours (ICD-10-PCS; principal; 2021-06-23)
PROC: 0BH18EZ Insertion of Endotracheal Airway into Trachea, Via Natural or Artificial Opening Endoscopic (ICD-10-PCS; 2021-06-23)
PROC: 009U3ZX Drainage of Spinal Canal, Percutaneous Approach, Diagnostic (ICD-10-PCS; 2021-06-23)
PROC: B01BYZZ Fluoroscopy of Spinal Cord using Other Contrast (ICD-10-PCS; 2021-06-23)
PROC: 02HV33Z Insertion of Infusion Device into Superior Vena Cava, Percutaneous Approach (ICD-10-PCS; 2021-06-23)
PROC: B548ZZA Ultrasonography of Superior Vena Cava, Guidance (ICD-10-PCS; 2021-06-23)
DX: T50.991A Poisoning by other drugs, medicaments and biological substances, accidental (unintentional), initial encounter (principal); J96.02 Acute respiratory failure with hypercapnia; B00.3 Herpesviral meningitis; K72.00 Acute and subacute hepatic failure without coma; J69.0 Pneumonitis due to inhalation of food and vomit; G92.8 Other toxic encephalopathy; I21.4 Non-ST elevation (NSTEMI) myocardial infarction; E44.1 Mild protein-calorie malnutrition; N17.9 Acute kidney failure, unspecified; E87.2 Acidosis; F19.188 Other psychoactive substance abuse with other psychoactive substance-induced disorder; Y92.89 Other specified places as the place of occurrence of the external cause; D72.829 Elevated white blood cell count, unspecified; F17.210 Nicotine dependence, cigarettes, uncomplicated; E87.5 Hyperkalemia; Z59.00 Homelessness unspecified; R74.01 Elevation of levels of liver transaminase levels; Z20.822 Contact with and (suspected) exposure to COVID-19; Z68.30 Body mass index [BMI] 30.0-30.9, adult; I95.9 Hypotension, unspecified
CPT/HCPCS: 31720; 36415; 36569; 36600; 70450-TC; 71045-TC; 75574; 80048-TC; 80053-TC; 80061-TC; 80076-TC; 81001; 82533; 82803-TC; 83540-TC; 83605-TC; 83735-TC; 84100-TC; 84443-TC; 84484-TC; 85025-TC; 85730-TC; 86592; 86694; 86803; 87040-TC; 87070-TC; 87081-TC; 87806; 87899; 89051-TC; 93307-TC; 94002-TC; 94799-TC; 97116-TC; 97530-TC; 99082-TC; C9803; G0378; G0480; J0696; J1644; J1650; J1940; J2543; J3475; J3490; J7030; J7040; J7042; J7050; J7060; J7070; J7120; Q9967